=== PATIENT | female | born 1995 | race Caucasian/White ===

== ENCOUNTER → 2018-11-28 | Outpatient (CLI) | payer MEDICAID ==
--- NOTE | 2018-11-28 14:10 | RADIOLOGY REPORT (SQ) ---
EXAM DESCRIPTION: U/S [id number] TRNABD 1GES W/ODOP COMPLETED DATE/TIME: 11/28/2018 1:31 pm REASON FOR STUDY: Z34.81 ENCNTR FOR SUPRVSN OF NORMAL FIRST PREG, FIRST TRIMESTER Z34.01 ENCNTR FOR SUPRVSN OF NORMAL FIRST PREG, FIRST TRIMES COMPARISON: None. TECHNIQUE: Transvaginal static and realtime grayscale images acquired of the pelvis. Additional vidya cted spectral and color Doppler images recorded. All images stored on PACs. bHCG: Not available. CLINICAL DATES: 8 weeks 3 days. LIMITATIONS: None. FINDINGS: FETUS: Single Living intrauterine . ULTRASOUND EGA: 7 weeks 4 days. ULTRASOUND SOCORRO: 07/13/2019 EFW: Not applicable less than 20 weeks. CRL: 1.31 cm. FHR: 145 beats per minute. SURVEY: Too early to assess. AMNIOTIC FLUID: Adequate amount. PLACENTA: Not yet developed due to early gestation. SUBCHORIONIC BLEED: No. SIZE OF BLEED: Not applicable. UTERUS: No masses. No anomalies. CERVICAL LENGTH: 2.0 cm. Closed. RIGHT ADNEXA: There is a 2.6 x 2.0 x 1.6 cm right ovarian cyst. Normal flow. No adnexal free fluid. No adnexal masses. LEFT ADNEXA: Normal ovary with normal vascular flow. No adnexal free fluid. No adnexal masses. FREE FLUID: None. OTHER: No other significant finding. IMPRESSION: LIVING INTRAUTERINE . EGA 7 WEEKS 4 DAYS. Trimester of : First - 0 to 13 weeks. TECHNICAL DOCUMENTATION: JOB ID: [id number]- All Rights Reserved Reading location - IP/workstation name: HEALTH INFORMATION [email or web address]
== END ==
LOC: RAD 12:20
PROVIDERS: ATTEND Midwife
DX: Z34.01 Encounter for supervision of normal first pregnancy, first trimester (principal)
CPT/HCPCS: 76801

== ENCOUNTER 2019-06-18 11:09 | Inpatient (IN) | payer BC, MEDICAID ==
[2019-06-18 11:59] LABS: APPEARANCE,URINE CLOUDY; BILIRUBIN,URINE NEGATIVE (NEGATIVE); COLOR,URINE YELLOW; GLUCOSE, URINE NEGATIVE (NEGATIVE); KETONES,URINE NEGATIVE (NEGATIVE); LEUKOCYTE ESTERASE,URINE LARGE (NEGATIVE); NITRITE,URINE NEGATIVE (NEGATIVE); PROTEIN,URINE NEGATIVE (NEGATIVE); URINE SPECIFIC GRAVITY 1.005; UROBILINOGEN,URINE NEGATIVE mg/dL (<2.0)
[2019-06-18] MEDS ORDERED: RINGERS SOLUTION,LACTATED 1,000 ML IV PRN (12:04)
[2019-06-18] MEDS ORDERED: RINGERS SOLUTION,LACTATED 1,000 ML IV ONE (12:04)
[2019-06-18 12:15] LABS: URINE AMPHETAMINES SCREEN NEGATIVE; URINE BARBITURATES SCREEN NEGATIVE; URINE BENZODIAZEPINES SCREEN NEGATIVE; URINE COCAINE SCREEN NEGATIVE; URINE MARIJUANA (THC) SCREEN NEGATIVE; URINE METHADONE SCREEN NEGATIVE; URINE PHENCYCLIDINE SCREEN NEGATIVE
--- NOTE | 2019-06-18 12:17 | Admission Physical ---
Datetime Report Generated by CPN: 06/18/2019 12:17 CURRENT ADMISSION Chief Complaint: Uterine Contractions; Suspected Ruptured Membranes Admit Impression : Active Labor; Ruptured Membranes Admit Plan: Admit to Unit; Initiate Labor Protocol ALLERGIES Medication Allergies: Yes Medication Allergies: azithromycin (06/18/2019) Latex: No Latex Allergies OBSTETRICAL HISTORY EDC: 07/13/2019 00:00 : 1 Para: 0 Term: 0 : 0 SAB: 0 IAB: 0 Livin Cesareans: 0 Gestational Diabetes: No Rh Sensitization: No Incompetent Cervix: No RODRIGO: No Infertility: No ART Treatment: No Uterine Anomaly: No IUGR: No Hx Previous C/S: No Macrosomia: No Hx Loss/Stillborn: No PIH: No Hx : No Placenta Previa/Abruption: No Depression/PP Depression: No PTL/PROM: Yes Post Hemorrhage: No Current Procedures: Ultrasound SEE RECORDS Alcohol: No Marijuana : No Cocaine: No Other Illicit Drugs: No Cigarettes: Current Some Day Smoker. [id number] MEDICAL HISTORY Diabetes: No Blood Transfusion: No Pulmonary Disease (Asthma, TB): No Breast Disease: No Hypertension: No Sports Team Marketing Intern Surgery: No Heart Disease: Yes Hosp/Surgery: Yes Autoimmune Disorder: No Anesthetic Complications: No Kidney Disease: No Abnormal Pap Smear: No Neuro/Epilepsy: No Psychiatric Disorders: No Other Medical Diseases: No Hepatitis/Liver Disease: No Significant Family History: Yes Varicosities/Phlebitis: No Trauma/Violence : No Thyroid Dysfunction: No Medical History Comments: appe 2013 tonsils adenoid 2011 INFECTIOUS HISTORY Gonorrhea: No Genital Herpes: No Chlamydia: No Syphilis: No HIV/AIDS Exposure: No HPV: No PHYSICAL EXAM General: Normal HEENT: Normal Neurologic: Normal Thyroid: Normal Heart: Normal Lungs: Normal Breast: Normal Back: Normal Abdomen: Normal Genitourinary Exam: Normal Extremities: Normal DTRs: Normal Pelvic Type: Adequate Vital Signs: Reviewed VAGINAL EXAM Dilatation: 7 Effacement: 90 Station: 0 MEMBRANES Membranes: Ruptured FETUS A EGA: 36.3 Monitoring: External US FHR- Baseline: 130 Variability: Moderate 6-25bpm Accelerations: 15X15 Decelerations: None Admit Comment: , at 36.3 weeks. Pt sent over from the office for a labor check. pt c/o leaking since 829. Actiprom+. Repeat VE here pt changed to /0 with palpable BOW. GBS unknown status. Will start PCN prophylaxis. Dr Martinez aware of pt status, and agrees w/ plan of care PLANS FOR LABOR AND DELIVERY Labor and Delivery: None Pain Management: Medications Feeding Preference: Formula Benefit of Breast Feed Discussed: Yes Circumcision: Yes INFORMED CONSENT Assignment: Yanelis Martinez MD Signature: with User ID: [email or web address] : with User ID: [email or web address]
[2019-06-18] MEDS ORDERED: LIDOCAINE 1% INJ-PF (10 MG/ML) 30 ML SDV ONE (12:18)
[2019-06-18] MEDS ORDERED: OXYTOCIN/NORMAL SALINE 20 UNIT/1,000 ML RTUINJ ONE (12:18)
[2019-06-18] MEDS ORDERED: MISOPROSTOL 0.2 MG TABLET ONE (12:18)
[2019-06-18] MEDS ORDERED: OXYTOCIN 10 UNIT/ML VIAL ONE (12:18)
[2019-06-18] MEDS ORDERED: PENICILLIN G-K 5 MILLION UNIT VIAL ONE (12:19)
[2019-06-18] MEDS ORDERED: PENICILLIN G POTASSIUM 5,000,000 UNIT in DEXTROSE 5%-WATER 100 ML IV ONE (12:30)
[2019-06-18] MEDS ORDERED: NALBUPHINE HCL INJ 10 MG/1 ML AMPULE INJ ONE (12:45)
[2019-06-18] MEDS ORDERED: NALBUPHINE HCL INJ 10 MG/1 ML AMPULE ONE (12:51)
[2019-06-18 13:31] LABS: HEMATOCRIT 30.9 % (36.0-47.0); HEMOGLOBIN 10.5 g/dL (12.0-15.5); MEAN CORPUSCULAR HEMOGLOBIN 32.8 pg (27.0-33.4); MEAN CORPUSCULAR HGB CONC 34.1 g/dL (32.0-36.0); MEAN CORPUSCULAR VOLUME 96 fl (80-97); PLATELET COUNT 269 10^3/uL (150-450); RED BLOOD COUNT 3.22 10^6/uL (3.72-5.28); RED CELL DISTRIBUTION WIDTH 13.7 % (11.5-14.0); WHITE BLOOD COUNT 24.5 10^3/uL (4.0-10.5)
[2019-06-18 14:02] LABS: ABSOLUTE LYMPHOCYTES# (MANUAL) 3.7 10^3/uL (0.5-4.7); ABSOLUTE MONOCYTES # (MANUAL) 1.2 10^3/uL (0.1-1.4); BASOPHILS % (MANUAL) 0 % (0-2); EOSINOPHILS % (MANUAL) 1 % (0-6); LYMPHOCYTES % (MANUAL) 15 % (13-45); MONOCYTES % (MANUAL) 5 % (3-13); RBC MORPHOLOGY COMMENT NORMO-CYTIC/CHROMIC; SEGMENTED NEUTROPHILS % (MAN) 79 % (42-78); TOTAL CELLS COUNTED 100
[2019-06-18 14:03] LABS: PLATELET COMMENT ADEQUATE
[2019-06-18] MEDS ORDERED: ACETAMINOPHEN WITH CODEINE #3 TABLET PO PRN ×3 (15:59→19:11)
[2019-06-18] MEDS ORDERED: DIPH/PERTUSS(ACELL)/TETANUS VAC/PF 0.5 ML SYR (>=10YO) IM PRN ×2 (15:59→19:11)
[2019-06-18] MEDS ORDERED: BENZOCAINE/MENTHOL AEROSOL SPRAY 56 ML TOP PRN ×2 (15:59→19:11)
[2019-06-18] MEDS ORDERED: ZOLPIDEM TARTRATE 5 MG TABLET PO PRN ×2 (15:59→19:11)
[2019-06-18] MEDS ORDERED: OXYTOCIN/NORMAL SALINE 20 UNIT/1,000 ML RTUINJ IV PRN ×2 (15:59→19:11)
[2019-06-18] MEDS ORDERED: MEASLES,MUMPS&RUBELLA VACC/PF 0.5 ML VIAL SUBCUT PRN ×2 (15:59→19:11)
[2019-06-18] MEDS ORDERED: DIBUCAINE 1% OINTMENT 28 GM TP PRN ×2 (15:59→19:11)
[2019-06-18] MEDS ORDERED: MISOPROSTOL 0.2 MG TABLET PO PRN (15:59)
[2019-06-18] MEDS ORDERED: PENICILLIN G POTASSIUM 2,500,000 UNIT in DEXTROSE 5%-WATER 50 ML IV SCH (16:06)
[2019-06-18] MEDS ORDERED: IBUPROFEN 800 MG TABLET ONE (16:17)
[2019-06-18] MEDS ORDERED: IBUPROFEN 800 MG TABLET PO SCH (17:00)
[2019-06-18] MEDS ORDERED: DOCUSATE SODIUM 100 MG CAPSULE PO SCH (18:00)
[2019-06-19] MEDS ORDERED: IBUPROFEN 800 MG TABLET ONE (00:53)
[2019-06-19] MEDS: IBUPROFEN 800 MG TABLET PO SCH ×3 (01:06→17:21)
[2019-06-19 03:22] LABS: CHLAM PCR NOT DETECTED (NOT DETECT)
[2019-06-19 06:41] LABS: HEMATOCRIT 33.3 % (36.0-47.0); HEMOGLOBIN 11.3 g/dL (12.0-15.5); MEAN CORPUSCULAR HEMOGLOBIN 32.8 pg (27.0-33.4); MEAN CORPUSCULAR HGB CONC 33.8 g/dL (32.0-36.0); MEAN CORPUSCULAR VOLUME 97 fl (80-97); PLATELET COUNT 308 10^3/uL (150-450); RED BLOOD COUNT 3.43 10^6/uL (3.72-5.28); RED CELL DISTRIBUTION WIDTH 13.5 % (11.5-14.0); WHITE BLOOD COUNT 24.2 10^3/uL (4.0-10.5)
[2019-06-19] MEDS ORDERED: SENNOSIDES/DOCUSATE 8.6-50 MG 1 EACH TABLET PO SCH (10:00)
[2019-06-19] MEDS ORDERED: PRENATAL VITAMIN W DHA CAPSULE PO SCH (10:00)
[2019-06-19] MEDS ORDERED: FERROUS SULFATE 325 MG TABLET PO SCH (10:00)
[2019-06-19] MEDS: SENNOSIDES/DOCUSATE 8.6-50 MG 1 EACH TABLET PO SCH (10:14)
[2019-06-19] MEDS: FERROUS SULFATE 325 MG TABLET PO SCH ×2 (10:14→17:21)
[2019-06-19] MEDS: DOCUSATE SODIUM 100 MG CAPSULE PO SCH ×2 (10:14→17:21)
[2019-06-19] MEDS: PRENATAL VITAMIN W DHA CAPSULE PO SCH (10:14)
--- NOTE | 2019-06-19 14:44 | PDOC PROGRESS REPORT ---
Subjective-OB Progress Note for:: 06/19/19 Subjective: 24yo G1 now P1 s/p ppd1. Pt. is bottlefeeding, reports pain is well controlled with medication. Ambulating and voiding without difficulty. 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 Physical Exam (OB) Vital Signs: Temp Pulse Resp BP Pulse Ox 98.0 F 87 16 110/56 L 100 06/19/19 07:44 06/19/19 07:44 06/19/19 07:44 06/19/19 07:44 06/19/19 07:44 Intake & Output 06/18/19 06/19/19 06/20/19 06:59 06:59 06:59 Weight 103.5 kg - General General Appearance: Appears well In distress: None - PIH/Pre-Eclampsia DTR's: 1 + Clonus: Negative Headache: Absent Epigastric Pain: No Visual Changes: No - Episiotomy/Laceration Site Condition: Well Approximated - Lochia Lochia Amount: Scant < 10 ml Lochia Color: Rubra/Red - Abdomen Description: Soft, Round Hernia Present: No Fundal Description: Firm, Midline Fundal Height: u/u - u/2 - Respiratory Respiratory Status: No respiratory distress - Extremities Upper extremity: Normal inspection Lower extremities: Normal inspection - Neurological Cognition: Normal - Psychological Associated symptoms: Normal affect, Normal mood Objective-Diagnostic Laboratory: 06/19/19 06:22 06/19/19 06:22 WBC 24.2 H RBC 3.43 L Hgb 11.3 L Hct 33.3 L MCV 97 MCH 32.8 MCHC 33.8 RDW 13.5 Plt Count 308 Assessment and Plan(PN) - Assessment and Plan (1) Anemia affecting in third trimester Is this a current diagnosis for this admission?: Yes Plan: hemoglobin above 11 today, will repeat again in the AM. Denies s/s of anemia (2) Obstetric vaginal laceration without perineal laceration Is this a current diagnosis for this admission?: Yes Plan: continue to monitor for s/s of infection (3) 36 weeks gestation of Is this a current diagnosis for this admission?: Yes Plan: delivered, baby in room with family (4) premature rupture of membranes Qualifiers: PROM onset of labor timing: unspecified duration between rupture of membranes and onset of labor Qualified Code(s): O42.919 - premature rupture of membranes, unspecified as to length of time between rupture and onset of labor, unspecified trimester Is this a current diagnosis for this admission?: Yes Plan: delivered (5) delivery Is this a current diagnosis for this admission?: Yes Plan: Routine pp care - Time Spent with Patient Time with patient: Less than 15 minutes Medications reviewed and adjusted accordingly: Yes - Disposition Anticipated Discharge: Home Within: within 24 hours - discussed WBC and variations during labor and delivery. Will repeat again in the AM
[2019-06-20] MEDS: IBUPROFEN 800 MG TABLET PO SCH ×2 (02:14→09:32)
[2019-06-20 06:36] LABS: HEMATOCRIT 31.4 % (36.0-47.0); HEMOGLOBIN 10.6 g/dL (12.0-15.5); MEAN CORPUSCULAR HEMOGLOBIN 32.9 pg (27.0-33.4); MEAN CORPUSCULAR HGB CONC 33.9 g/dL (32.0-36.0); MEAN CORPUSCULAR VOLUME 97 fl (80-97); PLATELET COUNT 302 10^3/uL (150-450); RED BLOOD COUNT 3.23 10^6/uL (3.72-5.28); RED CELL DISTRIBUTION WIDTH 13.7 % (11.5-14.0); WHITE BLOOD COUNT 14.1 10^3/uL (4.0-10.5)
[2019-06-20 08:38] VITALS: BP 118/77
[2019-06-20] MEDS: SENNOSIDES/DOCUSATE 8.6-50 MG 1 EACH TABLET PO SCH (09:32)
[2019-06-20] MEDS: PRENATAL VITAMIN W DHA CAPSULE PO SCH (09:32)
[2019-06-20] MEDS: DOCUSATE SODIUM 100 MG CAPSULE PO SCH (09:32)
--- NOTE | 2019-06-20 09:55 | PDOC PROGRESS REPORT ---
Subjective-OB Progress Note for:: 06/20/19 Subjective: Ready to go home. Physical Exam (OB) Vital Signs: Temp Pulse Resp BP Pulse Ox 97.6 F 98 16 118/77 100 06/20/19 08:06 06/20/19 08:06 06/20/19 08:06 06/20/19 08:06 06/20/19 08:06 Intake & Output 06/19/19 06/20/19 06/21/19 06:59 06:59 06:59 Weight 103.5 kg - PIH/Pre-Eclampsia DTR's: 1 + Clonus: Negative Headache: Absent Epigastric Pain: No Visual Changes: No - Lochia Lochia Amount: Scant < 10 ml Lochia Color: Rubra/Red - Abdomen Description: Soft Hernia Present: No Bowel Sounds: Normoactive Flatus Presence: Present Stool: Yes Fundal Description: Firm, Midline Fundal Height: u/u - u/2 Objective-Diagnostic Laboratory: 06/20/19 06:00 06/20/19 06:00 WBC 14.1 H RBC 3.23 L Hgb 10.6 L Hct 31.4 L MCV 97 MCH 32.9 MCHC 33.9 RDW 13.7 Plt Count 302 Assessment and Plan(PN) - Time Spent with Patient Medications reviewed and adjusted accordingly: Yes - Disposition Anticipated Discharge: Home
--- NOTE | 2019-06-20 10:00 | PDOC DISCHARGE SUMMARY ---
Impression - Admit/DC Date/PCP Admission Date/Primary Care Provider: 06/18/19 12:12 PANTERA STOKES CNM Discharge Date: 06/20/19 - Discharge Diagnosis (1) 36 weeks gestation of Is this a current diagnosis for this admission?: Yes (2) Anemia affecting in third trimester Is this a current diagnosis for this admission?: Yes (3) Obstetric vaginal laceration without perineal laceration Is this a current diagnosis for this admission?: Yes (4) delivery Is this a current diagnosis for this admission?: Yes (5) premature rupture of membranes Is this a current diagnosis for this admission?: Yes - Additional Information Resuscitation Status: Full Code Discharge Diet: Regular Discharge Activity: Activity As Tolerated, Balance Activity w/Rest, Pelvic Rest, Slowly Increase Activity, No tub bath Referrals: PANTERA STOKES CNM [Primary Care Provider] - KERRIE STOKES MD [ACTIVE STAFF] - Home Medications: Ferrous Sulfate [Iron] 325 mg PO DAILY 06/18/19 Vit/Dha [ Multi + Dha Capsule] 1 cap PO DAILY 06/18/19 HPI Gestational Age: 36.3 wks Reason(s) for Admission: Onset of Labor Procedures: Ultrasound Intrapartum Procedure(s): Spontaneous Vaginal Delivery Complication(s): Laceration-Perineal Laceration-Degree: 1st Results Laboratory Results: WBC 14.1 10^3/uL (4.0-10.5) H 06/20/19 06:00 RBC 3.23 10^6/uL (3.72-5.28) L 06/20/19 06:00 Hgb 10.6 g/dL (12.0-15.5) L 06/20/19 06:00 Hct 31.4 % (36.0-47.0) L 06/20/19 06:00 MCV 97 fl (80-97) 06/20/19 06:00 MCH 32.9 pg (27.0-33.4) 06/20/19 06:00 MCHC 33.9 g/dL (32.0-36.0) 06/20/19 06:00 RDW 13.7 % (11.5-14.0) 06/20/19 06:00 Plt Count 302 10^3/uL (150-450) 06/20/19 06:00 Lymph % (Auto) Not Reportable 06/18/19 13:12 Josephine % (Auto) Not Reportable 06/18/19 13:12 Eos % (Auto) Not Reportable 06/18/19 13:12 Baso % (Auto) Not Reportable 06/18/19 13:12 Absolute Neuts (auto) Not Reportable 06/18/19 13:12 Absolute Lymphs (auto) Not Reportable 06/18/19 13:12 Absolute Monos (auto) Not Reportable 06/18/19 13:12 Absolute Eos (auto) Not Reportable 06/18/19 13:12 Absolute Basos (auto) Not Reportable 06/18/19 13:12 Total Counted 100 06/18/19 13:12 Seg Neutrophils % Not Reportable 06/18/19 13:12 Seg Neuts % (Manual) 79 % (42-78) H 06/18/19 13:12 Lymphocytes % (Manual) 15 % (13-45) 06/18/19 13:12 Monocytes % (Manual) 5 % (3-13) 06/18/19 13:12 Eosinophils % (Manual) 1 % (0-6) 06/18/19 13:12 Basophils % (Manual) 0 % (0-2) 06/18/19 13:12 Abs Neuts (Manual) 19.4 10^3/uL (1.7-8.2) H 06/18/19 13:12 Abs Lymphs (Manual) 3.7 10^3/uL (0.5-4.7) 06/18/19 13:12 Abs Monocytes (Manual) 1.2 10^3/uL (0.1-1.4) 06/18/19 13:12 Absolute Eos (Manual) 0.2 10^3/uL (0.0-0.6) 06/18/19 13:12 Abs Basophils (Manual) 0.0 10^3/uL (0.0-0.2) 06/18/19 13:12 Platelet Comment ADEQUATE 06/18/19 13:12 RBC Morph Comment NORMO-CYTIC/CHROMIC 06/18/19 13:12 Urine Color YELLOW 06/18/19 11:35 Urine Appearance CLOUDY 06/18/19 11:35 Urine pH 8.0 (5.0-9.0) 06/18/19 11:35 Ur Specific West 1.005 06/18/19 11:35 Urine Protein NEGATIVE mg/dL (NEGATIVE) 06/18/19 11:35 Urine Glucose (UA) NEGATIVE mg/dL (NEGATIVE) 06/18/19 11:35 Urine Ketones NEGATIVE mg/dL (NEGATIVE) 06/18/19 11:35 Urine Blood MODERATE (NEGATIVE) H 06/18/19 11:35 Urine Nitrite NEGATIVE (NEGATIVE) 06/18/19 11:35 Urine Bilirubin NEGATIVE (NEGATIVE) 06/18/19 11:35 Urine Urobilinogen NEGATIVE mg/dL (<2.0) 06/18/19 11:35 Ur Leukocyte Esterase LARGE (NEGATIVE) H 06/18/19 11:35 Urine Ascorbic Acid NEGATIVE (NEGATIVE) 06/18/19 11:35 Membranes Rupture POSITIVE (NEGATIVE) H 06/18/19 11:35 Urine Opiates Screen NEGATIVE 06/18/19 11:35 Urine Methadone Screen NEGATIVE 06/18/19 11:35 Ur Barbiturates Screen NEGATIVE 06/18/19 11:35 Ur Phencyclidine Scrn NEGATIVE 06/18/19 11:35 Ur Amphetamines Screen NEGATIVE 06/18/19 11:35 U Benzodiazepines Scrn NEGATIVE 06/18/19 11:35 Urine Cocaine Screen NEGATIVE 06/18/19 11:35 U Marijuana (THC) Screen NEGATIVE 06/18/19 11:35 RPR NONREACTIVE (NONREACTIVE) 06/18/19 13:12 Chlamydia DNA (PCR) NOT DETECTED (NOT DETECT) 06/19/19 01:17 N.gonorrhoeae DNA (PCR) NOT DETECTED (NOT DETECT) 06/19/19 01:17 Blood Type O POSITIVE 06/18/19 13:12 Antibody Screen NEGATIVE 06/18/19 13:12 Plan Plan of Treatment: Follow up at [facility] in 4 wks. Time Spent: Less than 30 Minutes
[2019-06-20] MEDS: FERROUS SULFATE 325 MG TABLET PO SCH (10:24)
--- NOTE | 2019-06-26 07:52 | Delivery Summary ---
Del Sum A-C Datetime Report Generated by CPN: 06/26/2019 07:51 DELIVERY PERSONNEL DELIVERY PERSONNEL: [id number] Delivery Doctor:: Laura Maria CNM Nurse Furnace Combustion Analyst Certified:: Laura Maria CNM Labor and Delivery Nurse:: HARRY Sorenson Labor and Delivery Nurse:: HARRY Peterson Nursery Nurse:: ALESHIA Long Nurse:: ALESHIA Montano Tech/NAOMY: Imani Raymond CNA II MATERNAL INFORMATION Delivery Anesthesia: None Medications After Delivery: Pitocin Bolus-Please Comment Meds After Delivery Comment: Pitocin 20 units in 1000 ml nss open for bolus Delivery QBL: 579 Maternal Complications: None Provider Comments: Called for Delivery, pt . RN stated SROM of BBOW approximently 15 min prior to delivery. of VMI, delivered JOSE G, vigorous and crying. Cord possibly loosely looped around babies wrist. Baby placed on pts chest, cord clamped and cut after one minute, then cord blood collected. Placenta S/C/I, IV Pitocin infusing, ff w/ decreased lochia. Placenta to path due to 36 wk delivery. No repair of perineum needed, 1st degree is hemostatic. QBL 579 w/ 900ml of amniotic fluid noted after delivery. Will observe pt for further bleeding. Mother and baby in stable condition, plans to bottlefeed LABOR SUMMARY EDC: 07/13/2019 00:00 No. Babies in Womb: 1 Attempted: No Labor Anesthesia: IV Sedation LABOR INFORMATION Reason for Induction: Not Applicable Onset of Labor: 06/18/2019 06:15 Complete Dilatation: 06/18/2019 15:20 Oxytocin: N/A Group B Beta Strep: UNKNOWN Antibiotics # of Doses: 1 Antibiotics Time of Last Dose: 1230 Name of Antibiotic Given: Penicillin Steroids Given: None Reason Steroids Not Administered: Not Applicable MEMBRANES Membranes Rupture Method: Spontaneous Rupture of Membranes: 06/18/2019 08:15 Length of Rupture (hr): 7.23 Amniotic Fluid Color: Clear Amniotic Fluid Amount: Small Amniotic Fluid Odor: Normal STAGES OF LABOR Stage 1 hr: 9 Stage 1 min: 5 Stage 2 hr: 0 Stage 2 min: 9 Stage 3 hr: 0 Stage 3 min: 4 Total Time in Labor hr: 9 Total Time in Labor min: 18 VAGINAL DELIVERY Laceration #1: Perineal Laceration Extension #1: First Degree Laceration Repair: No Sponge Count Correct: N/A Sharps Count Correct: N/A CSECTION DELIVERY Primary Indication: N/A Secondary Indication: N/A CSection Incidence: N/A Labor: N/A Elective: N/A CSection Incision: N/A BABY A INFORMATION Delivery Date/Time: 06/18/2019 15:29 Method of Delivery: Vaginal Born in Route : No : N/A Forceps: N/A Vacuum Extraction: N/A Shoulder Dystocia : No PRESENTATION/POSITION BABY A Presentation: Cephalic Cephalic Presentation: Vertex Vertex Position: Right Occipital Anterior Breech Presentation: N/A PLACENTA INFORMATION BABY A Placenta Delivery Time : 06/18/2019 15:33 Placenta Method of Delivery: Spontaneous Placenta Status: Delivered SCORES BABY A Heart Rate 1 min: >100 bpm Resp Effort 1 min: Good Cry Reflex Irritability 1 min: Cough or Sneeze or Pulls Away Muscle Tone 1 min: Active Motion Color 1 min: Blue/Pale Resuscitation Effort 1 min: Tactile Stimulation SCORE 1 MIN: 8 Heart Rate 5 min: >100 bpm Resp Effort 5 min: Good Cry Reflex Irritability 5 min: Cough or Sneeze or Pulls Away Muscle Tone 5 min: Active Motion Color 5 min: Body Ski Gap, Extremities Blue Resuscitation Effort 5 min: N/A SCORE 5 MIN: 9 Resuscitation Effort 10 min: N/A INFORMATION BABY A Gestational Age at Delivery: 36.3 Gestational Status: Late - 34- 36.6 Weeks Outcome : Liveborn Infant Condition : Stable Infant Sex: Male IDENTIFICATION BABY A Infant Verification Date/Time: 06/18/2019 16:05 ID Band Number: [id number] Mother's Name Verified: Yes Infant RN Verifying : SAutry Additional Verifying Personnel: S Camp WEIGHT/LENGTH BABY A Infant Birthweight (gm): 3185 Weight (lb): 7 Weight (oz): 0 Length (in): 19.50 Infant Length (cm): 49.53 CORD INFORMATION BABY A No. Cord Vessels: 3 Nuchal Cord : N/A Cord Blood Taken: Yes-For Eval (Mom's Blood Type - or O+) Infant Suction: None ASSESSMENT BABY A Infant Complications: None Physical Findings at Delivery: Within Normal Limits Infant Respirations: Grunting; Nasal Flaring; Sternal Retractions Skin to Skin: Yes (Annotations: baby to nsy grunting and retracting) Skin to Skin: Yes Die Polisher/ALS Called : No Care By: Lacy Pena RN Transferred To: Nursery BABY B INFORMATION : N/A SIGNATURES Assignment: Yanelis Martinez MD Signature: with User ID: [email or web address] Signature: with User ID: Annalise : with User ID: Annalise : with User ID: Annalise
== END 2019-06-20 18:29 | disposition home or self-care (01) | DRG 807 ==
LOC: LC 11:09 → LR 12:12 → 2S 17:45
PROVIDERS: ADMIT Obstetrics & Gynecology; ATTEND Obstetrics & Gynecology
PROC: 10E0XZZ Delivery of Products of Conception, External Approach (ICD-10-PCS; principal; 2019-06-18)
DX: O42.913 Preterm premature rupture of membranes, unspecified as to length of time between rupture and onset of labor, third trimester (principal); Z37.0 Single live birth; F17.210 Nicotine dependence, cigarettes, uncomplicated; O70.0 First degree perineal laceration during delivery; O99.02 Anemia complicating childbirth; O99.334 Smoking (tobacco) complicating childbirth; Z3A.36 36 weeks gestation of pregnancy; Z88.3 Allergy status to other anti-infective agents; Z88.1 Allergy status to other antibiotic agents
CPT/HCPCS: 36415; 80307; 81005; 84112; 85025; 85027; 86592; 86850; 86900; 86901; 87491; 87591; 88307; J2300; J2540; J2590; J3490; J7060

== ENCOUNTER → 2020-02-14 | Outpatient (CLI) | payer BC ==
--- NOTE | 2020-02-14 13:25 | RADIOLOGY REPORT (SQ) ---
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 TECHNIQUE: Post IV contrasted scanning from skull base through lung apices with review of bone, soft tissue and lung windows. Reconstructed coronal and sagittal MPR images reviewed. All images stored on PACS. All CT scanners at this facility use dose modulation, iterative reconstruction, and/or weight based d osing when appropriate to reduce radiation dose to as low as reasonably achievable (ALARA). [facility]: Dose Right [facility]: CareDose [facility]: Dose Right [facility]: Teradose 4D [facility]: [employer] CONTRAST TYPE AND DOSE: contrast/concentration: Isovue 350.00 mmol/ml; Total Contrast Delivered: 75. 0 ml; Total Saline Delivered: 55.0 ml RENAL FUNCTION: None required. The patient is less than 50 years old. RADIATION DOSE: . LIMITATIONS: None. FINDINGS: SKULL BASE: Intact. MAJOR SALIVARY GLANDS: No solid or cystic lesions. There is a 4.2 x 3.6 mm stone in the left submand ibular duct. Parotid glands are unremarkable. Submandibular glands are symmetric. LYMPHADENOPATHY: Occasional small cervical lymph node is demonstrated most likely reactive. MUCOSAL MASSES OR ASYMMETRY: No mucosal masses or asymmetry. LARYNX/CORDS: No abnormal findings. VASCULAR STRUCTURES: The major vessels are patent. LUNG APICES: Clear. BONES: Intact. THYROID: Normal size. No masses. PARANASAL SINUSES: Clear. OTHER: The patient appears to have bilateral elongated styloid process or mineralization of the stylo hyoid ligament. This is an unusual finding which can be symptomatic including symptoms of recurrent throat pain, dysphagia, otalgia and neck pain. Clinical correlation is needed. IMPRESSION: 1. 4.2 x 3.6 mm left some mandibular duct stone. No inflammatory changes in the subman dibular or parotid glands. 2. Bilateral elongated styloid process or mineralization of the stylohyoid ligament as described. TECHNICAL DOCUMENTATION: JOB ID: [id number] Quality ID # [id number]: Final reports with documentation of one or more dose reduction techniques (e.g., Au tomated exposure control, adjustment of the mA and/or kV according to patient size, use of iterative reconstruction technique) 2010 [employer]- All Rights Reserved Reading location - IP/workstation name: [email or web address]
== END ==
LOC: RAD 08:49
PROVIDERS: ATTEND Otolaryngology
DX: K11.5 Sialolithiasis (principal)
CPT/HCPCS: 70491